=== PATIENT | male | born 1960 | race Hispanic/Latino ===

== ENCOUNTER 2017-12-05 12:26 | Emergency (ER) | payer OTHER ==
[2017-12-05] MEDS ORDERED: HYDROCODONE/APAP 7.5/325 MG TAB ONE (13:33)
[2017-12-05] MEDS ORDERED: IBUPROFEN 400 MG TAB ONE (13:34)
--- NOTE | 2017-12-05 14:14 | RAD REPORT ---
EXAM DESCRIPTION: RAD - Hand Right 3 View - 12/05/2017 1:53 pm CLINICAL HISTORY: Hand pain following blunt force trauma COMPARISON: None. FINDINGS: No fracture is identified. There is no dislocation or periosteal reaction noted. IP joint degenerative changes are present. Ventral angulation of the fifth metacarpal head has no acute fract ure component and is probably from an old remote fracture. There is soft tissue swelling or contusion near the fifth metacarpal. Foreign body is not suspected. IMPRESSION: Soft tissue swelling or hematoma in the region of the fifth metacarpal. No fracture or acute bone findings seen.
--- NOTE | 2017-12-05 14:25 | ER ---
Nurse's Notes [facility] Name: Cristhian Gonzalez Age: 57 yrs Sex: Male : 1960 Arrival Date: 12/05/2017 Time: 12:29 Bed 24 Private MD: None, None Diagnosis: Contusion of right hand Presentation: 12/05 13:00 Presenting complaint: Patient states: " I got hit in the hand w/ a hammer at work." Pt ph reports pain in R hand, swelling noted, ROM intact. Transition of care: patient was not received from another setting of care. Onset of symptoms was December 05, 2017. Risk Assessment: Do you want to hurt yourself or someone else? Patient reports no desire to harm self or others. Initial Sepsis Screen: Does the patient meet any 2 criteria? No. Patient's initial sepsis screen is negative. Does the patient have a suspected source of infection? No. Patient's initial sepsis screen is negative. Care prior to arrival: None. 13:00 Method Of Arrival: Ambulatory ph 13:00 Acuity: ELYSSA 4 ph Triage Assessment: 14:35 General: Appears in no apparent distress. uncomfortable, unkempt, well developed, well kr2 nourished, Behavior is calm, cooperative, appropriate for age. Injury Description: accidentally hit with a sledge hammer by coworker. Historical: - Allergies: 13:02 No Known Allergies; ph - Home Meds: 13:02 None [Active]; ph - PMHx: 13:02 None; ph - PSHx: 13:02 Left total knee replacement; splenectomy; ph - Immunization history:: Adult Immunizations unknown. - Social history:: Smoking status: Patient/guardian denies using tobacco. - Ebola Screening: : No symptoms or risks identified at this time. Screenin:03 Abuse screen: Denies threats or abuse. Denies injuries from another. Nutritional ph screening: No deficits noted. Tuberculosis screening: No symptoms or risk factors identified. Fall Risk None identified. Assessment: 13:15 General: Appears in no apparent distress. uncomfortable, unkempt, well developed, well kr2 nourished, Behavior is calm, cooperative, appropriate for age. Pain: Complains of pain in right hand Pain radiates to right arm Pain currently is 7 out of 10 on a pain scale. Quality of pain is described as aching, Is continuous, Alleviated by nothing. Neuro: Level of Consciousness is awake, alert, obeys commands, Oriented to person, place, time, situation, Appropriate for age. Cardiovascular: Capillary refill < 3 seconds in bilateral fingers Patient's skin is warm and dry. Respiratory: Airway is patent Respiratory effort is even, unlabored, Respiratory pattern is regular, symmetrical. GI: Abdomen is flat, non-distended. Derm: Skin is intact, is healthy with good turgor, Skin is pink, warm \\T\\ dry. Musculoskeletal: Circulation, motion, and sensation intact. Swelling present in right hand Hematoma right hand. 14:30 Reassessment: Patient appears in no apparent distress at this time. Patient and/or kr2 family updated on plan of care and expected duration. Pain level reassessed. Patient is alert, oriented x 3, equal unlabored respirations, skin warm/dry/pink. Patient states feeling better. Reassessment: Splint placed by scale technician Thom Renae. Patient verbalizes increased comfort after application of splint. Circulation intact. Vital Signs: 13:02 BP 139 / 95; Pulse 78; Resp 16; Temp 98.1(TE); Pulse Ox 97% on R/A; Weight 112.49 kg; ph Height 6 ft. 1 in. (185.42 cm); Pain 8/10; 14:40 BP 132 / 86; Pulse 80; Resp 17; Pulse Ox 99% ; kr2 13:02 Body Mass Index 32.72 (112.49 kg, 185.42 cm) ph ED Course: 12:29 Patient arrived in ED. sb2 12:29 None, None is Private Physician. sb2 12:57 Ayde Hinton, RICARDO is Primary Nurse. ss 13:01 Alcides Kay PA is PHCP. cp 13:01 Fantasma Lee MD is Attending Physician. cp 13:02 Triage completed. ph 13:03 Arm band placed on. ph 13:15 Patient has correct armband on for positive identification. Bed in low position. Call kr2 light in reach. Pulse ox on. NIBP on. Door closed. Ice pack to injury. Head of bed elevated. 13:52 X-ray completed. Portable x-ray completed in exam room. Patient tolerated procedure ml well. 13:53 XRAY Hand RIGHT 3 View In Process Unspecified. EDMS 14:24 Luis Delgdao MD is Referral Physician. cp 14:46 Orthoglass splint: Ulnar gutter/Boxer splint applied on right forearm. em1 14:58 No provider procedures requiring assistance completed. Patient did not have IV access kr2 during this emergency room visit. Administered Medications: 13:31 Drug: Ibuprofen 800 mg Route: PO; kr2 14:43 Follow up: Response: No adverse reaction; Pain is decreased kr2 13:31 Drug: Hydrocodone-Acetaminophen (7.5 mg-325 mg) 1 tabs Route: PO; kr2 14:43 Follow up: Response: No adverse reaction; Pain is decreased kr2 Outcome: 14:25 Discharge ordered by MD. cp 14:58 Discharged to home ambulatory, with friend. kr2 14:58 Condition: good 14:58 Discharge instructions given to patient, Instructed on discharge instructions, follow up and referral plans. medication usage, Demonstrated understanding of instructions, follow-up care, medications, Prescriptions given X 2. 14:59 Patient left the ED. kr2 Signatures: Dispatcher [employer] EDAR Zahra Wiley Eric em1 Ayde Hinton, RICARDO RN Rosie Maza RN RN Alcides Haro, PA PA cp Mona Johnson, RN RN kr2 Jennie Mccann sb2
--- NOTE | 2017-12-05 14:25 | EDPHYS ---
Physician Documentation [facility] Name: Cristhian Gonzalez Age: 57 yrs Sex: Male : 1960 Arrival Date: 12/05/2017 Time: 12:29 Bed 24 Private MD: None, None ED Physician Fantasma Lee HPI: 12/05 13:28 This 57 yrs old Male presents to ER via Ambulatory with complaints of Hand cp Injury. 13:28 The patient or guardian reports injury, pain. cp 13:28 The complaints affect the right hand. Context: The problem was sustained at work, cp resulted from a direct blow, being struck by heavy hammer. Onset: The symptoms/episode began/occurred today. Associated signs and symptoms: Pertinent negatives: numbness. Historical: - Allergies: 13:02 No Known Allergies; ph - Home Meds: 13:02 None [Active]; ph - PMHx: 13:02 None; ph - PSHx: 13:02 Left total knee replacement; splenectomy; ph - Immunization history:: Adult Immunizations unknown. - Social history:: Smoking status: Patient/guardian denies using tobacco. - Ebola Screening: : No symptoms or risks identified at this time. ROS: 13:35 Constitutional: Negative for body aches, chills, fever, poor PO intake. cp 13:35 Eyes: Negative for injury, pain, redness, and discharge. cp 13:35 ENT: Negative for drainage from ear(s), ear pain, sore throat, difficulty swallowing, difficulty handling secretions. 13:35 Cardiovascular: Negative for chest pain, edema, palpitations. 13:35 Respiratory: Negative for cough, shortness of breath, wheezing. 13:35 Abdomen/GI: Negative for abdominal pain, nausea, vomiting, and diarrhea. 13:35 MS/extremity: Positive for contusion, ecchymosis, pain, swelling, tenderness, of the metacarpal area of right fifth digit. 13:35 Skin: Negative for cellulitis, rash. 13:35 All other systems are negative. Exam: 13:40 Constitutional: The patient appears in no acute distress, alert, awake, non-toxic, well cp developed, well nourished. 13:40 Head/Face: Normocephalic, atraumatic. cp 13:40 Eyes: Periorbital structures: appear normal, Conjunctiva: normal, no exudate, no injection, Lids and lashes: appear normal, bilaterally. 13:40 ENT: External ear(s): are unremarkable, Nose: is normal, Mouth: is normal, Posterior pharynx: is normal, airway is patent. 13:40 Chest/axilla: Inspection: normal. 13:40 Cardiovascular: Rate: normal, Rhythm: regular. 13:40 Respiratory: the patient does not display signs of respiratory distress, Respirations: normal, no use of accessory muscles, no retractions, no splinting, no tachypnea. 13:40 Abdomen/GI: Exam negative for discomfort, distension, guarding. 13:40 Musculoskeletal/extremity: Extremities: grossly normal except: noted in the fifth metacarpal area of right hand: ecchymosis, pain, swelling, tenderness, ROM: full active range of motion, in the right hand, Perfusion: the extremity is normally perfused throughout, Sensation intact. 13:40 Skin: cellulitis, is not appreciated, no rash present. Vital Signs: 13:02 BP 139 / 95; Pulse 78; Resp 16; Temp 98.1(TE); Pulse Ox 97% on R/A; Weight 112.49 kg; ph Height 6 ft. 1 in. (185.42 cm); Pain 8/10; 14:40 BP 132 / 86; Pulse 80; Resp 17; Pulse Ox 99% ; kr2 13:02 Body Mass Index 32.72 (112.49 kg, 185.42 cm) ph Procedures: 14:55 Splinting: Splint applied to right hand using Orthoglass splint, applied by tech. cp Examined by me, post splint application: neurovascular intact, Patient tolerated well. MDM: 13:01 Patient medically screened. cp 13:30 Differential diagnosis: dislocation, open fracture, closed fracture, contusion. cp 14:25 Data reviewed: vital signs, nurses notes, radiologic studies, plain films. cp 14:25 Test interpretation: by ED physician or midlevel provider: plain radiologic studies. cp Counseling: I had a detailed discussion with the patient and/or guardian regarding: the historical points, exam findings, and any diagnostic results supporting the discharge/admit diagnosis, radiology results, to return to the emergency department if symptoms worsen or persist or if there are any questions or concerns that arise at home. Response to treatment: the patient's symptoms have markedly improved after treatment, and as a result, I will discharge patient. 12/05 13:24 Order name: XRAY Hand RIGHT 3 View; Complete Time: 14:21 cp 12/05 14:21 Interpretation: Report reviewed. cp 12/05 14:24 Order name: Splint - Ulnar Jameel; Complete Time: 14:43 cp Administered Medications: 13:31 Drug: Ibuprofen 800 mg Route: PO; kr2 14:43 Follow up: Response: No adverse reaction; Pain is decreased kr2 13:31 Drug: Hydrocodone-Acetaminophen (7.5 mg-325 mg) 1 tabs Route: PO; kr2 14:43 Follow up: Response: No adverse reaction; Pain is decreased kr2 Disposition: 16:23 Co-signature as Attending Physician, Fantasma Lee MD. rn Disposition: 12/05/17 14:25 Discharged to Home. Impression: Contusion of right hand. - Condition is Stable. - Discharge Instructions: Hand Contusion. - Prescriptions for Naprosyn 500 mg Oral Tablet - take 1 tablet by ORAL route 2 times per day take with food; 20 tablet. Tramadol 50 mg Oral Tablet - take 1 tablet by ORAL route every 8 hours as needed; 12 tablet. - Medication Reconciliation Form, Thank You Letter, Antibiotic Education, Prescription Opioid Use form. - Follow up: Luis Delgado MD; When: 5 - 6 days; Reason: Recheck today's complaints. - Problem is new. - Symptoms have improved. Signatures: Dispatcher [employer] EDFantasma Wood MD MD rn Hall, Patricia, RN RN ph Alcides Kay PA PA cp Mona Johnson RN RN kr2 Corrections: (The following items were deleted from the chart) 14:59 14:25 12/05/2017 14:25 Discharged to Home. Impression: Contusion of right hand. kr2 Condition is Stable. Forms are Medication Reconciliation Form, Thank You Letter, Antibiotic Education, Prescription Opioid Use. Follow up: Luis Delgado; When: 5 - 6 days; Reason: Recheck today's complaints. Problem is new. Symptoms have improved. cp
[2017-12-05 15:04] VITALS: TEMP 98.1
[2017-12-05 15:05] VITALS: BP 132/86; O2SAT 99
== END 2017-12-05 14:59 | disposition home or self-care (01) ==
LOC: ER 12:26
DX: S60.221A Contusion of right hand, initial encounter (principal); W22.8XXA Striking against or struck by other objects, initial encounter; Y93.9 Activity, unspecified; Y92.89 Other specified places as the place of occurrence of the external cause; Y99.8 Other external cause status
CPT/HCPCS: 99284

== ENCOUNTER 2024-04-07 08:42 | Emergency (ER) | payer MEDICARE, OTHER ==
--- OUTSIDE RECORDS SUMMARY | 2024-04-07 08:45 | XMS REPORT | Continuity of Care Document ---
Author Name Unknown Address [address] [facility] [address] th[address] Address [address] [facility] [address] [place] [address] Care Team Providers Care Parts Facilitator Name Role Phone Unavailable Unavailable Unavailable Payers Payer Name Policy Type Policy Number Effective Date Expirati on Date Source [facility] (MEDICARE REPLACEMENT HMO) [id number] 00:00:00 Encounters Start Date/Time End Date/Time Encounter Type Admission Type Attending Clinicians Care Facility Care Department Encounter ID Source 2023-02-09 00:00:00 2023-02-09 00:00:00 Outpatient [facility] [id number] [facility] 2022-10-27 00:00:00 2022-10-27 00:00:00 Outpatient [facility] [id number] [facility]
--- NOTE | 2024-04-07 10:28 | RAD REPORT ---
EXAMINATION: XR RIGHT SHOUDLER CLINICAL INDICATION: Male, 64 years old. PAIN RIGHT TECHNIQUE: Multiple views of the right shoulder were obtained. COMPARISON: No prior exam. FINDINGS: No bone or joint abnormality detected.
[2024-04-07] MEDS ORDERED: ONDANSETRON 4 MG/2 ML VIAL ONE (10:35)
[2024-04-07] MEDS ORDERED: NA CHLORIDE 0.9% 1,000 ML ONE (10:36)
[2024-04-07] MEDS ORDERED: dexAMETHasone 10 MG/ML VIAL ONE (10:36)
[2024-04-07] MEDS ORDERED: KETOROLAC 30 MG/ML INJ ONE (10:36)
[2024-04-07 11:01] LABS: Absolute Eosinophils 0.5 K/uL (0-0.5); Absolute Lymphocytes (CBC) 2.9 K/uL (0.7-4.9); Absolute Neutrophil 6.7 K/uL (1.8-8.0); Basophils % 0.2 % (0-1.3); Eosinophils % 4.1 % (0-4.4); Hematocrit 43.6 % (39.6-49.0); Hemoglobin 14.1 g/dL (13.6-17.9); Lymphocytes % 25.8 % (15.3-44.8); MCH 31.1 pg (27.0-35.0); MCHC 32.4 g/dL (32.0-36.0); MCV 96.2 fL (80-100); MPV 8.5 fL (7.6-11.3); Monocytes % 9.3 % (3.3-12.3); Neutrophils % 60.6 % (41.7-73.7); Nucleated Red Blood Cells % 0.1 % (0-0); Platelets 317 thou/uL (152-406); RBC Red Blood Cell Count 4.53 M/uL (4.33-5.43); Red Cell Distribution Width 12.8 % (12.1-15.2)
--- NOTE | 2024-04-07 11:01 | RAD REPORT ---
EXAMINATION: CT CERVICAL SPINE WITHOUT CONTRAST HISTORY: PAIN COMPARISON: None TECHNIQUE: Multiple contiguous axial images were obtained in a CT of the cervical spine without IV co ntrast. Sagittal and coronal reformats were performed. One or more of the following dose reduction techniques were used: Automated exposure control, adjustment of the mA and kV according to patient si ze, and iterative reconstruction. Unless otherwise specified, incidental findings do not require dedicated imaging follow-up. FINDINGS: The vertebral bodies and intervertebral discs demonstrate normal height and alignment without fractu re or subluxation. No significant degenerative changes are present. No prevertebral soft tissue swelling is seen. Left-sided facet hypertrophy is present mid cervical levels. The odontoid appears normal and the late ral masses are symmetric. The lung apices are unremarkable. IMPRESSION: No evidence of acute osseous abnormality of the cervical spine.
[2024-04-07 11:16] LABS: Albumin 3.5 g/dL (3.4-5.0); Albumin/Globulin Ratio 0.8 (1.1-1.8); Anion Gap 5.8 mEq/L (5.0-15.0); Bilirubin Total 0.5 mg/dL (0.2-1.0); Globulin 4.3 g/dL (2.3-3.5); Potassium 3.8 mEq/L (3.5-5.1); Protein, Total 7.8 g/dL (6.4-8.2)
--- NOTE | 2024-04-07 11:21 | ER ---
Nurse's Notes [facility] Name: Cristhian Gonzalez Age: 64 yrs Sex: Male : 1960 Arrival Date: 04/07/2024 Time: 08:42 Bed 20 Private MD: Diagnosis: Pain in right shoulder;Radiculopathy, cervical region;Fall on same level, unspecified;Acute serous otitis media, left ear;Diffuse otitis externa, left ear Presentation: 04/07 09:01 Chief complaint: Patient states: tweaked his right arm a week ago , he was falling and iw caught himself with his arm, pain radiates across his shoulders. Coronavirus screen: At this time, the client does not indicate any symptoms associated with coronavirus-19. Ebola Screen: No symptoms or risks identified at this time. Initial Sepsis Screen: Does the patient meet any 2 criteria? No. Patient's initial sepsis screen is negative. Does the patient have a suspected source of infection? No. Patient's initial sepsis screen is negative. Risk Assessment: Do you want to hurt yourself or someone else? Patient reports no desire to harm self or others. Onset of symptoms was March 31, 2024. 09:01 Method Of Arrival: Ambulatory iw 09:01 Acuity: ELYSSA 4 iw Triage Assessment: 09:05 General: Appears in no apparent distress. Behavior is calm, cooperative, appropriate bp for age. Pain: Complains of pain in anterior aspect of right shoulder. EENT: No deficits noted. Neuro: No deficits noted. Cardiovascular: No deficits noted. Respiratory: No deficits noted. GI: No signs and/or symptoms were reported involving the gastrointestinal system. : No signs and/or symptoms were reported regarding the genitourinary system. Derm: No deficits noted. Musculoskeletal: Reports pain in anterior aspect of right shoulder. Historical: - Allergies: 09:03 No Known Allergies; iw - Home Meds: 09:03 None [Active]; iw - PMHx: 09:03 None; iw - PSHx: 09:04 spleen; left knee; lung; iw - Immunization history:: Adult Immunizations not up to date. - Infectious Disease History:: Denies. - Social history:: Smoking status: Patient denies any tobacco usage or history of. Screenin:05 [facility] ED Fall Risk Assessment (Adult) History of falling in the last 3 months, bp including since admission No falls in past 3 months (0 pts) Confusion or Disorientation No (0 pts) Intoxicated or Sedated No (0 pts) Impaired Gait No (0 pts) Mobility Assist Device Used No (0 pt) Altered Elimination No (0 pt) Score/Fall Risk Level 0 - 2 = Low Risk Oriented to surroundings. Abuse screen: Denies threats or abuse. Denies injuries from another. Nutritional screening: No deficits noted. Tuberculosis screening: No symptoms or risk factors identified. Assessment: 09:05 General: Appears in no apparent distress. Behavior is calm, cooperative, appropriate bp for age. 11:30 Reassessment: D/C ON HOLD PENDING IVF COMPLETION. bp 13:00 Reassessment: Patient appears in no apparent distress at this time. Patient is alert, bp oriented x 3, equal unlabored respirations, skin warm/dry/pink. Vital Signs: 09:01 BP 146 / 87; Pulse 57; Resp 18; Temp 98.1; Pulse Ox 100% on R/A; Weight 95.71 kg; iw Height 6 ft. 1 in. ; Pain 8/10; 13:00 BP 145 / 84; Pulse 48; Resp 15; Pulse Ox 99% ; bp 09:01 Body Mass Index 27.84 (95.71 kg, 185.42 cm) iw 09:01 Pain Scale: Adult iw ED Course: 08:46 Patient arrived in ED. ra3 08:58 Alcides Valenzuela MD is Attending Physician. albin 09:03 Triage completed. iw 09:04 Arm band placed on. iw 09:05 Jhonny Abarca, RN is Primary Nurse. bp 09:05 Patient has correct armband on for positive identification. bp 10:15 Shoulder Right (2 View) XRAY In Process Unspecified. EDMS 10:48 Initial lab(s) drawn, by ga, sent to lab. Inserted saline lock: 20 gauge in right bp forearm, using aseptic technique. Blood collected. Flushed with 10 mL NS. 10:54 CT C Spine In Process Unspecified. EDMS 11:19 Taj Perry MD is Referral Physician. albin 11:37 Whitney Gordon MD is Referral Physician. albin 13:00 No provider procedures requiring assistance completed. IV discontinued, intact, bp bleeding controlled, No redness/swelling at site. Pressure dressing applied. Administered Medications: 10:48 Drug: NS 0.9% IV 1000 ml IV at 1000 ml once; to be given as a bolus over 60 minutes bp Route: IV; Rate: 1000 ml; Site: right forearm; 12:24 Follow up: IV Status: Completed infusion bp 10:48 Drug: Ketorolac IVP 30 mg IVP once Route: IVP; Site: right forearm; bp 11:34 Follow up: Response: No adverse reaction bp 10:48 Drug: Ondansetron IVP 4 mg IVP once; over 2 minutes Route: IVP; Site: right forearm; bp 11:34 Follow up: Response: No adverse reaction bp 10:48 Drug: Decadron - Dexamethasone IVP 10 mg IVP once Route: IVP; Site: right forearm; bp 11:34 Follow up: Response: No adverse reaction bp 12:00 Drug: Rocephin IV 1 grams IV at per protocol once; Given slow IV push per pharmacy bp instructions Route: IV; Rate: per protocol; Site: right antecubital; 12:23 Follow up: IV Status: Completed infusion; IV Intake: 100ml bp 12:00 Drug: LevOfloxacin PO 750 mg PO once Route: PO; bp 12:23 Follow up: Response: No adverse reaction bp Medication: 09:05 VIS not applicable for this client. bp Intake: 12:23 IV: 100ml; Total: 100ml. bp Outcome: 11:20 Discharge ordered by . albin 13:00 Discharged to home ambulatory, bp 13:00 Condition: stable 13:00 Discharge instructions given to patient, Instructed on discharge instructions, follow up and referral plans. medication usage, Demonstrated understanding of instructions, follow-up care, medications, Prescriptions given X 5 13:09 Patient left the ED. bp Signatures: Dispatcher [employer] EDAlcides Griffin MD MD cha Williams, Irene, RN RN Jhonny Davidson RN RN Sarah Mueller ra3 Corrections: (The following items were deleted from the chart) 09:05 09:03 PSHx: None; [facility]
--- NOTE | 2024-04-07 11:21 | EDPHYS ---
Physician Documentation [facility] Name: Cristhian Gonzalez Age: 64 yrs Sex: Male : 1960 Arrival Date: 04/07/2024 Time: 08:42 Bed 20 Private MD: ED Physician Alcides Valenzuela HPI: 04/07 11:14 This 64 yrs old Male presents to ER via Ambulatory with complaints of Shoulder albin Pain - Right. Historical: - Allergies: 09:03 No Known Allergies; iw - Home Meds: 09:03 None [Active]; iw - PMHx: 09:03 None; iw - PSHx: 09:04 spleen; left knee; lung; iw - Immunization history:: Adult Immunizations not up to date. - Infectious Disease History:: Denies. - Social history:: Smoking status: Patient denies any tobacco usage or history of. ROS: 11:16 Constitutional: Negative for fever, chills, and weight loss, Eyes: Negative for injury, albin pain, redness, and discharge, ENT: Negative for injury, pain, and discharge, Cardiovascular: Negative for chest pain, palpitations, and edema, Respiratory: Negative for shortness of breath, cough, wheezing, and pleuritic chest pain, Abdomen/GI: Negative for abdominal pain, nausea, vomiting, diarrhea, and constipation, Back: Negative for injury and pain, : Negative for injury, bleeding, discharge, and swelling, Skin: Negative for injury, rash, and discoloration, Neuro: Negative for headache, weakness, numbness, tingling, and seizure, Psych: Negative for depression, anxiety, suicide ideation, homicidal ideation, and hallucinations, Allergy/Immunology: Negative for hives, rash, and allergies, Endocrine: Negative for neck swelling, polydipsia, polyuria, polyphagia, and marked weight changes, Hematologic/Lymphatic: Negative for swollen nodes, abnormal bleeding, and unusual bruising, 11:16 Neck: Positive for pain with movement, pain at rest, 11:16 MS/extremity: Positive for pain, of the anterior aspect of right shoulder, right bicep, posterior aspect of right shoulder and right tricep, Exam: 11:16 Constitutional: This is a well developed, well nourished patient who is awake, alert, albin and in no acute distress. Head/Face: Normocephalic, atraumatic. Eyes: Pupils equal round and reactive to light, extra-ocular motions intact. Lids and lashes normal. Conjunctiva and sclera are non-icteric and not injected. Cornea within normal limits. Periorbital areas with no swelling, redness, or edema. ENT: Nares patent. No nasal discharge, no septal abnormalities noted. Tympanic membranes are normal and external auditory canals are clear. Oropharynx with no redness, swelling, or masses, exudates, or evidence of obstruction, uvula midline. Mucous membranes moist. Chest/axilla: Normal chest wall appearance and motion. Nontender with no deformity. No lesions are appreciated. Cardiovascular: Regular rate and rhythm with a normal S1 and S2. No gallops, murmurs, or rubs. Normal PMI, no JVD. No pulse deficits. Respiratory: Lungs have equal breath sounds bilaterally, clear to auscultation and percussion. No rales, rhonchi or wheezes noted. No increased work of breathing, no retractions or nasal flaring. Abdomen/GI: Soft, non-tender, with normal bowel sounds. No distension or tympany. No guarding or rebound. No evidence of tenderness throughout. Back: No spinal tenderness. No costovertebral tenderness. Full range of motion. Male : Normal genitalia with no discharge or lesions. Skin: Warm, dry with normal turgor. Normal color with no rashes, no lesions, and no evidence of cellulitis. Neuro: Awake and alert, GCS 15, oriented to person, place, time, and situation. Cranial nerves II-XII grossly intact. Motor strength 5/5 in all extremities. Sensory grossly intact. Cerebellar exam normal. Normal gait. Psych: Awake, alert, with orientation to person, place and time. Behavior, mood, and affect are within normal limits. 11:16 Neck: C-spine: no acute changes, Thyroid: appears normal, Trachea: is midline with no obvious abnormalities, ROM/movement: pain, that is mild, with extension, with flexion, Lymph nodes: no appreciated lymphadenopathy, Vital Signs: 09:01 BP 146 / 87; Pulse 57; Resp 18; Temp 98.1; Pulse Ox 100% on R/A; Weight 95.71 kg; iw Height 6 ft. 1 in. ; Pain 8/10; 13:00 BP 145 / 84; Pulse 48; Resp 15; Pulse Ox 99% ; bp 09:01 Body Mass Index 27.84 (95.71 kg, 185.42 cm) iw 09:01 Pain Scale: Adult iw MDM: 08:58 Medical Screening Exam initiated albin 11:18 Differential diagnosis: Anterior dislocation with fracture, Anterior dislocation albin without fracture, Posterior dislocation with fracture, Posterior dislocation without fracture, humeral head fracture, glenoid fracture, DJD, tendonitis. Data reviewed: vital signs, nurses notes, lab test result(s), CBC, electrolytes, hepatic panel, radiologic studies. Consideration of Admission/Observation Escalation of care including admission/observation considered. I considered the following discharge prescriptions or medication management in the emergency department Medications were administered in the Emergency Department. See MAR. Independent interpretation of the following test(s) in the Emergency Department CT Scan: My interpretation is ct c spine. Test considered but Not performed: MRI: no mri c spine. Care significantly affected by the following chronic conditions: none. 04/07 10:28 Order name: CBC with Diff; Complete Time: 11:35 [facility] 04/07 10:28 Order name: Comprehensive Metabolic Panel; Complete Time: 11:35 [facility] 04/07 11:04 Order name: Manual Differential; Complete Time: 11:35 EDMS 04/07 08:59 Order name: Shoulder Right (2 View) XRAY; Complete Time: 11:16 [facility] 04/07 10:28 Order name: CT C Spine; Complete Time: 11:16 [facility] Administered Medications: 10:48 Drug: NS 0.9% IV 1000 ml IV at 1000 ml once; to be given as a bolus over 60 minutes bp Route: IV; Rate: 1000 ml; Site: right forearm; 12:24 Follow up: IV Status: Completed infusion bp 10:48 Drug: Ketorolac IVP 30 mg IVP once Route: IVP; Site: right forearm; bp 11:34 Follow up: Response: No adverse reaction bp 10:48 Drug: Ondansetron IVP 4 mg IVP once; over 2 minutes Route: IVP; Site: right forearm; bp 11:34 Follow up: Response: No adverse reaction bp 10:48 Drug: Decadron - Dexamethasone IVP 10 mg IVP once Route: IVP; Site: right forearm; bp 11:34 Follow up: Response: No adverse reaction bp 12:00 Drug: Rocephin IV 1 grams IV at per protocol once; Given slow IV push per pharmacy bp instructions Route: IV; Rate: per protocol; Site: right antecubital; 12:23 Follow up: IV Status: Completed infusion; IV Intake: 100ml bp 12:00 Drug: LevOfloxacin PO 750 mg PO once Route: PO; bp 12:23 Follow up: Response: No adverse reaction bp Disposition Summary: 04/07/24 11:20 Discharge Ordered Notes: Location: Home albin Problem: new albin Symptoms: have improved albin Condition: Stable albin Diagnosis - Pain in right shoulder albin - Radiculopathy, cervical region albin - Fall on same level, unspecified albin - Acute serous otitis media, left ear albin - Diffuse otitis externa, left ear albin Followup: albin - With: Private Physician - When: 2 - 3 days - Reason: Recheck today's complaints, Continuance of care, Re-evaluation by your physician Followup: albin - With: Taj Perry MD - When: 2 - 3 days - Reason: Recheck today's complaints, Re-evaluation by your physician Followup: albin - With: Whitney Gordon MD - When: 2 - 3 days - Reason: Recheck today's complaints, Re-evaluation by your physician Discharge Instructions: - Discharge Summary Sheet albin - Cervical Radiculopathy albin - Ear Drops, Adult albin - Otitis Media, Adult albin - Otitis Externa albin - Musculoskeletal Pain albin - Shoulder Pain albin - Otitis Externa, Sibo-fr-Fkhv albin - Shoulder Pain, Snsh-ka-Efby albin - Joint Pain, Tzto-yz-Lxqy albin - Cervical Radiculopathy, Nczj-of-Rgdj [facility] Forms: - Medication Reconciliation Form [facility] - Antibiotic Education albin - Prescription Opioid Use albin - Patient Portal Instructions [facility] - Leadership Thank You Letter [facility] Prescriptions: - dexamethasone 4 mg Oral tablet - take 1 tablet ORAL route once daily; 5 tablet; Refills: 0, Product Selection albin Permitted - Diclofenac Sodium 75 mg Oral tablet, delayed release (enteric coated) - take 1 tablet ORAL route 2 times per day; 20 tablet; Refills: 0, Product albin Selection Permitted - Ciprodex 0.3-0.1 % Otic drops, suspension - instill 4 drops OTIC route every 12 hours for 7 days to left ear only; 7.5 albin milliliter; Refills: 0, Product Selection Permitted - methocarbamol 750 mg Oral tablet - take 1 tablet ORAL route 4 times per day; 30 tablet; Refills: 0, Product albin Selection Permitted - levofloxacin 750 mg Oral tablet - take 1 tablet ORAL route once daily; 7 tablet; Refills: 0, Product Selection albin Permitted Signatures: Dispatcher [employer] Alcides Marrero MD MD cha Williams, Irene, RICARDO RN Jhonny Davidson RN RN bp Corrections: (The following items were deleted from the chart) 08:59 08:59 Shoulder Right 2 View+RAD.RAD.[email or web address] ordered. [facility] 09:05 09:03 PSHx: None; yasmine underwood
[2024-04-07 11:22] LABS: Blood Morphology Comment NOTED (NOT SEEN); Burr Cells 1+; Differential Total Cells Count 100; Eosinophils 3 % (0-3); Lymphocytes 25 % (15-42); Monocytes 11 % (0-10); Platelet Estimate ADEQ; Segmented Neutrophils 61 % (40-80)
[2024-04-07] MEDS ORDERED: levoFLOXacin 750 MG TAB ONE (11:47)
[2024-04-07] MEDS ORDERED: CEFTRIAXONE 1000 MG/VIAL ONE (11:47)
[2024-04-07] MEDS ORDERED: NA CHLORIDE 0.9% 100 ML ONE (11:48)
[2024-04-07 13:13] VITALS: TEMP 98.1
[2024-04-07 13:15] VITALS: BP 145/84; O2SAT 99
== END 2024-04-07 13:09 | disposition home or self-care (01) ==
LOC: ER 08:42
DX: M54.12 Radiculopathy, cervical region (principal); H65.02 Acute serous otitis media, left ear; H60.312 Diffuse otitis externa, left ear; W18.30XA Fall on same level, unspecified, initial encounter
CPT/HCPCS: 96365; 96361; 85025; 36415; 80053; 72125; 73030; 96375; 99284; J1100; J2405; J7030; J0696

== ENCOUNTER 2024-05-10 14:16 | Emergency (ER) | payer OTHER ==
--- OUTSIDE RECORDS SUMMARY | 2024-05-10 14:20 | XMS REPORT | Continuity of Care Document ---
Author Name Unknown Address [address] [place] [address] [address] th[address] Address [address] [facility] [address] [place] [address] Care Team Providers Care Receiving Barn Custodian Name Role Phone Unavailable Unavailable Unavailable Payers Payer Name Policy Type Policy Number Effective Date Expirati on Date Source [employer] (MEDICARE REPLACEMENT HMO) [id number] 2022 00:00:00 Encounters Start Date/Time End Date/Time Encounter Type Admission Type Attending [facility] Facility Care Department Encounter ID Source 2023-02-09 00:00:00 2023-02-09 00:00:00 Outpatient [facility] [id number] [facility] 2022-10-27 00:00:00 2022-10-27 00:00:00 Outpatient DMG DMG [id number] [facility]
[2024-05-10] MEDS ORDERED: ONDANSETRON 4 MG (ODT) TAB ONE (14:46)
[2024-05-10] MEDS ORDERED: HYDROCODONE/APAP 10/325 TAB ONE (14:46)
--- NOTE | 2024-05-10 15:00 | RAD REPORT ---
EXAMINATION: CT HEAD WITHOUT CONTRAST CT CERVICAL SPINE WITHOUT CONTRAST CLINICAL INDICATION: Head and neck injury status post fall. Head and neck pain TECHNIQUE: Axial CT images from the skull base to the vertex without intravenous contrast. Axial CT i mages through the cervical spine were obtained without intravenous contrast. Sagittal and coronal reformatted images were created from the data set. Coronal and sagittal reformatted images were creat ed from the data set. One or more of the following dose reduction techniques were used: Automated exposure control, adjustment of the mA and/or kV according to patient size, and/or iterative reconstr uction. Unless otherwise specified, incidental findings do not require dedicated imaging follow-up. [id number]. Comparison: March 2024 FINDINGS: An intracranial bleed is not seen. Ventricles are normal in caliber. No significant hypodensity within the brain No extra-axial fluid collection. No fluid within the sinuses/mastoids No fracture or dislocation is seen involving the cervical spine. Spondylosis cervical spine. Dental caries is present. IMPRESSION: No acute intracranial abnormality noted A cervical fracture is not seen. If the patient continues to have symptoms to suggest acute RETENTION REPRESENTATIVE/spinal pathology then MRI would be rec ommended
--- NOTE | 2024-05-10 15:27 | RAD REPORT ---
Exam:Hip Right 2 View HISTORY: Right hip pain FINDINGS: No fracture or dislocation seen. If the patient continues to have symptoms to suggest an occult fracture then MRI would be recommended
--- NOTE | 2024-05-10 15:29 | RAD REPORT ---
Exam:Shoulder Right 2+ Views History: Right shoulder pain Findings: No fracture or dislocation seen
--- NOTE | 2024-05-10 15:31 | RAD REPORT ---
Exam:Wrist Right 3 View HISTORY: Right wrist pain FINDINGS: Old avulsion fracture ulnar styloid process No acute fracture or dislocation seen If the patient continues to have symptoms to suggest an occult fracture then follow-up x-ray in 7 day s would be recommended
--- NOTE | 2024-05-10 16:25 | ER ---
Nurse's Notes [facility] Name: Cristhian Gonzalez Age: 64 yrs Sex: Male : 1960 Arrival Date: 05/10/2024 Time: 14:16 Bed 2 Private MD: Diagnosis: Closed head injury Presentation: 05/10 14:34 Chief complaint: Patient states: he slipped and fell on an icy wooden ramp Monday ap3 05/08/24 morning. patient states he landed on his right arm, shoulder, and hit the right side of his head. patient also states that a couple hours later, he was watching a movie, and started tearing up. patient reports he is not usually so emotional. patient reports sensitivity to light. Coronavirus screen: At this time, the client does not indicate any symptoms associated with coronavirus-19. Ebola Screen: No symptoms or risks identified at this time. Initial Sepsis Screen: Does the patient meet any 2 criteria? No. Patient's initial sepsis screen is negative. Does the patient have a suspected source of infection? No. Patient's initial sepsis screen is negative. Risk Assessment: Do you want to hurt yourself or someone else? Patient reports no desire to harm self or others. Onset of symptoms was May 08, 2024. 14:34 Method Of Arrival: Ambulatory ap3 14:34 Acuity: ELYSSA 2 ap3 Historical: - Allergies: 14:37 No Known Allergies; ap3 - Home Meds: 14:37 None [Active]; ap3 - PSHx: 14:37 left knee; lung; spleen; ap3 - Infectious Disease History:: Denies. - Family history:: not pertinent. - Social history:: Smoking status: Patient/guardian denies using tobacco, but has a distant history of tobacco abuse. Screenin:38 Abuse screen: Denies threats or abuse. Nutritional screening: No deficits noted. ap3 Tuberculosis screening: No symptoms or risk factors identified. 14:48 [facility] ED Fall Risk Assessment (Adult) History of falling in the last 3 months, ko1 including since admission Yes- single mechanical fall (1 pt) Confusion or Disorientation No (0 pts) Intoxicated or Sedated No (0 pts) Impaired Gait No (0 pts) Mobility Assist Device Used No (0 pt) Altered Elimination No (0 pt) Score/Fall Risk Level 0 - 2 = Low Risk Oriented to surroundings, Maintained a safe environment, Educated pt \T\ family on fall prevention, incl call for assistance when getting out of bed, Assessed \T\ reinforced patient's understanding of fall precautions, Provided non-skid footwear, Hourly rounding (assess needs \T\ fall precautionary measures) done. Assessment: 14:37 General: Appears distressed, uncomfortable, Behavior is calm, cooperative, appropriate ap3 for age. Pain: Complains of pain in head, back and right arm Pain began 2-3 days ago. Neuro: Level of Consciousness is awake, alert, obeys commands, Oriented to person, place, time, situation, Appropriate for age Reports headache. Cardiovascular: Patient's skin is warm and dry. Respiratory: Airway is patent Respiratory effort is even, unlabored, Respiratory pattern is regular, symmetrical. 14:46 Reassessment:. db Vital Signs: 14:34 BP 176 / 102; Pulse 61; Resp 18; Temp 97.8; Pulse Ox 100% ; ap3 14:36 Weight 99.79 kg; ap3 16:44 BP 164 / 92; Pulse 58; Resp 15; Pulse Ox 99% ; ko1 ED Course: 14:19 Patient arrived in ED. im 14:22 Benja Landis MD is Attending Physician. rt 14:36 Triage completed. ap3 14:38 Arm band placed on right wrist. ap3 14:[address] via stretcher. db 14:47 Brenda Brown, RICARDO is Primary Nurse. ko1 14:48 Patient has correct armband on for positive identification. Bed in low position. Call ko1 light in reach. Side rails up X2. Provided Education on: meds. Pulse ox on. NIBP on. Door closed. Noise minimized. Lights dimmed. Warm blanket given. Pillow given. 14:50 CT Head C Spine In Process Unspecified. EDMS 15:04 Shoulder Right (2 View) XRAY In Process Unspecified. EDMS 15:04 Wrist Right 3 View XRAY In Process Unspecified. EDMS 15:04 Hip Right 2 View XRAY In Process Unspecified. EDMS 16:44 No provider procedures requiring assistance completed. Patient did not have IV access ko1 during this emergency room visit. Administered Medications: 15:08 Drug: Ondansetron Oral Disintegrating Tablet Oral Disintegrating Tablet 4 mg PO once ko1 Route: PO; 15:38 Follow up: Response: No adverse reaction ko1 15:11 Drug: [place] PO 10 mg-325 mg 1 tabs PO once Route: PO; ko1 15:41 Follow up: Response: No adverse reaction; Pain is decreased ko1 Medication: 14:48 VIS not applicable for this client. ko1 Outcome: 16:24 Discharge ordered by . rt 16:44 Discharged to home ambulatory, with family, ko1 16:44 Condition: stable 16:44 Discharge instructions given to patient, Instructed on discharge instructions, follow up and referral plans. medication usage, Demonstrated understanding of instructions, follow-up care, medications, Prescriptions given X 1, 16:47 Patient left the ED. ko1 Signatures: Dispatcher [employer] EDMS Randi Cardona RN RN ap3 Brenda Brown RN RN ko1 Daly Rodriguez RN RN db Benja Landis MD MD rt Alexus Mcdaniel im
--- NOTE | 2024-05-10 16:25 | EDPHYS ---
Physician Documentation [facility] Name: Cristhian Gonzalez Age: 64 yrs Sex: Male : 1960 Arrival Date: 05/10/2024 Time: 14:16 Bed 2 Private MD: ED Physician Benja Landis HPI: 05/10 16:27 This 64 yrs old Male presents to ER via Ambulatory with complaints of Head rt Injury Without LOC-Adult, Fall Injury. 16:27 Patient presents to the ED 3 days following head injury. Patient slipped and fell rt hitting the right side of his head, reports no bleeding. Reports mild right shoulder, right wrist, right hip pain. Reports a significant headache and nausea but denies loss of consciousness. Symptoms are moderate in severity, no other aggravating or alleviating factors.. Historical: - Allergies: 14:37 No Known Allergies; ap3 - Home Meds: 14:37 None [Active]; ap3 - PSHx: 14:37 left knee; lung; spleen; ap3 - Infectious Disease History:: Denies. - Family history:: not pertinent. - Social history:: Smoking status: Patient/guardian denies using tobacco, but has a distant history of tobacco abuse. ROS: 16:27 Constitutional: Negative for fever, chills, and weight loss, Cardiovascular: Negative rt for chest pain, palpitations, and edema, Respiratory: Negative for shortness of breath, cough, wheezing, and pleuritic chest pain, Abdomen/GI: Negative for abdominal pain, nausea, vomiting, diarrhea, and constipation, Psych: Negative for depression, anxiety, suicide ideation, homicidal ideation, and hallucinations, 16:27 MS/extremity: Positive for pain, Negative for deformity, 16:27 Neuro: Positive for headache, Negative for loss of consciousness, Exam: 16:27 Constitutional: This is a well developed, well nourished patient who is awake, alert, rt and in no acute distress. Head/Face: Normocephalic, atraumatic. Chest/axilla: Normal chest wall appearance and motion. Nontender with no deformity. No lesions are appreciated. Cardiovascular: Regular rate and rhythm with a normal S1 and S2. No gallops, murmurs, or rubs. Normal PMI, no JVD. No pulse deficits. Respiratory: Lungs have equal breath sounds bilaterally, clear to auscultation and percussion. No rales, rhonchi or wheezes noted. No increased work of breathing, no retractions or nasal flaring. Abdomen/GI: Soft, non-tender, with normal bowel sounds. No distension or tympany. No guarding or rebound. No evidence of tenderness throughout. Skin: Warm, dry with normal turgor. Normal color with no rashes, no lesions, and no evidence of cellulitis. Neuro: Awake and alert, GCS 15, oriented to person, place, time, and situation. Cranial nerves II-XII grossly intact. Motor strength 5/5 in all extremities. Sensory grossly intact. Cerebellar exam normal. Normal gait. 16:27 Musculoskeletal/extremity: Mild tenderness to the right shoulder, right wrist, right hip, no deformities, full range of motion, pulses, motor, sensation are intact. Vital Signs: 14:34 BP 176 / 102; Pulse 61; Resp 18; Temp 97.8; Pulse Ox 100% ; ap3 14:36 Weight 99.79 kg; ap3 16:44 BP 164 / 92; Pulse 58; Resp 15; Pulse Ox 99% ; ko1 MDM: 14:33 Medical Screening Exam initiated rt 16:27 Differential diagnosis: Contusion of Intracranial bleed- Concussion. Data reviewed: rt vital signs, nurses notes, radiologic studies. I considered the following discharge prescriptions or medication management in the emergency department Medications were administered in the Emergency Department. See MAR. Independent interpretation of the following test(s) in the Emergency Department CT Scan: My interpretation is No intracranial hemorrhage seen on my interpretation of CT scan images. Test considered but Not performed: Other Details Denies syncope, loss of consciousness, EKG, blood work are not indicated. Counseling: I had a detailed discussion with the patient and/or guardian regarding the historical points, exam findings, and any diagnostic results supporting the discharge/admit diagnosis, radiology results, the need for outpatient follow up. Response to treatment: the patient's symptoms have markedly improved after treatment. 05/10 14:40 Order name: CT Head C Spine; Complete Time: 15:04 rt 05/10 14:40 Order name: Shoulder Right (2 View) XRAY; Complete Time: 15:35 rt 05/10 14:40 Order name: Wrist Right 3 View XRAY; Complete Time: 15:35 rt 05/10 14:40 Order name: Hip Right 2 View XRAY; Complete Time: 15:35 rt Administered Medications: 15:08 Drug: Ondansetron Oral Disintegrating Tablet Oral Disintegrating Tablet 4 mg PO once ko1 Route: PO; 15:38 Follow up: Response: No adverse reaction ko1 15:11 Drug: [place] PO 10 mg-325 mg 1 tabs PO once Route: PO; ko1 15:41 Follow up: Response: No adverse reaction; Pain is decreased ko1 Disposition Summary: 05/10/24 16:24 Discharge Ordered Notes: Location: Home rt Problem: new rt Symptoms: have improved rt Condition: Stable rt Diagnosis - Closed head injury rt Followup: rt - With: Private Physician - When: 2 - 3 days - Reason: Discharge Instructions: - Discharge Summary Sheet rt - Concussion, Adult rt Forms: - Medication Reconciliation Form rt - Antibiotic Education rt - Prescription Opioid Use rt - Patient Portal Instructions rt - Leadership Thank You Letter rt Prescriptions: - Tramadol 50 mg Oral Tablet - take 1 tablet ORAL route every 8 hours as needed; 12 tablet; Refills: 0, rt Product Selection Permitted Signatures: Dispatcher [employer] Randi Deutsch RN RN ap3 Brenda Brown RN RN ko1 Benja Landis MD MD rt
[2024-05-10 18:28] VITALS: TEMP 97.8
[2024-05-10 18:29] VITALS: BP 164/92; O2SAT 99
== END 2024-05-10 16:47 | disposition home or self-care (01) ==
LOC: ER 14:16
DX: S09.90XA Unspecified injury of head, initial encounter (principal); R51.9 Headache, unspecified; R11.0 Nausea; M25.511 Pain in right shoulder; M25.531 Pain in right wrist; M25.551 Pain in right hip; W01.0XXA Fall on same level from slipping, tripping and stumbling without subsequent striking against object, initial encounter
CPT/HCPCS: 70450; 72125; 73502; 73030; 73110; 99284; Q0162